=== PATIENT | male | born 1980 | race Two or more races ===

== ENCOUNTER 2016-04-14 11:05 | Emergency (ER) | payer SELFPAY ==
[~2016-04-14] VITALS: Ht 182.9 cm; Wt 101.2 kg
[~2016-04-14 11:05] MED LIST: FIORICET WI1 CAPSULE PO; IMITREX25 MG PO; REGLAN10 MG PO
[2016-04-14 11:25] VITALS: BP 130/79
[2016-04-14] MEDS ORDERED: NAPROSYN500 MG PO (13:38)
[2016-04-14] MEDS ORDERED: CLINDAMYCIN HC300 MG PO (13:38)
== END 2016-04-14 13:44 | disposition home or self-care (01) ==
LOC: EME 11:05
DX: K04.7 Periapical abscess without sinus (principal); R60.9 Edema, unspecified; K03.81 Cracked tooth; K08.89 Other specified disorders of teeth and supporting structures
CPT/HCPCS: 99281; 99283